=== PATIENT | male | born 1975 | race Caucasian/White ===

== ENCOUNTER 2021-10-20 13:48 | Emergency (ER) | payer MEDICAID ==
[~2021-10-20] VITALS: Ht 170.2 cm; Wt 86.2 kg
[2021-10-20 13:48] VITALS: BP_SYST 151
--- NOTE | 2021-10-20 13:50 | NUR ---
Patient triaged and placed in waiting room. VSS and patient appears in no acute distress at this time. Accompanied by FRIEND, awaiting available bed, and MD notified of need for MSE.
--- NOTE | 2021-10-20 14:18 | NUR ---
DR FAIRCHILD OUT TO TRIAGE ROOM TO EVALUATE PT.
[2021-10-20] MEDS ORDERED: PRED20TA PO (14:40)
[2021-10-20] MEDS ORDERED: NAPR-1172 PO (14:40)
--- NOTE | 2021-10-20 14:48 | NUR ---
Patient given written and verbal discharge instructions and verbalizes understanding. ER MD discussed with patient the results and treatment provided. Patient in stable condition. ID arm band removed. Rx of NAPROSYN, PREDNISON given. Patient educated on pain management and to follow up with PMD. Pain Scale 0/10. Opportunity for questions provided and answered. Medication side effect fact sheet provided.
== END 2021-10-20 14:48 | disposition home or self-care (01) ==
LOC: SED 13:48
DX: J02.8 Acute pharyngitis due to other specified organisms (principal); B97.89 Other viral agents as the cause of diseases classified elsewhere; Z79.899 Other long term (current) drug therapy
CPT/HCPCS: 99283